=== PATIENT | female | born 1975 | race Caucasian/White ===

== ENCOUNTER 2024-06-11 10:20 | Day surgery (SDC) | payer OTHER ==
[~2024-06-11] VITALS: Ht 152.4 cm; Wt 54.7 kg
[2024-06-11] MEDS ORDERED: CELEXA40 M1 (10:59)
[2024-06-11] MEDS ORDERED: Nexium40 MG (10:59)
[2024-06-11] MEDS ORDERED: ALLEGRA ALLERG180 MG (11:00)
[2024-06-11] MEDS ORDERED: HYDROCODONE-AC1 EAC7 (11:02)
[2024-06-11] MEDS ORDERED: LAMO100 (11:04)
[2024-06-11] MEDS ORDERED: Lactated Ringer's 1,000 ML IV ONE ×2 (11:32→11:48)
[2024-06-11] MEDS ORDERED: propofoL 50 ML IV ONE (11:48)
[2024-06-11 12:59] VITALS: BP 123/97
== END 2024-06-11 13:02 | disposition home or self-care (01) ==
LOC: ORSCSDS 10:20
PROVIDERS: Internal Medicine Gastroenterology
PROC: 0DJ08ZZ Inspection of Upper Intestinal Tract, Via Natural or Artificial Opening Endoscopic (ICD-10-PCS; principal; 2024-06-11 11:30)
PROC: 0DJD8ZZ Inspection of Lower Intestinal Tract, Via Natural or Artificial Opening Endoscopic (ICD-10-PCS; principal; 2024-06-11 11:30)
DX: R19.4 Change in bowel habit (principal); R13.10 Dysphagia, unspecified; K21.9 Gastro-esophageal reflux disease without esophagitis; Z79.899 Other long term (current) drug therapy
CPT/HCPCS: J2704; J7120

== ENCOUNTER 2025-01-05 08:13 | Day surgery (SDC) | payer OTHER ==
[~2025-01-05] VITALS: Ht 152.4 cm; Wt 51.7 kg
[~2025-01-05 08:13] MED LIST: ALLEGRA ALLERG180 MG; CELEXA40 M1; HYDROCODONE-AC1 EAC7; LAMO100; Lactated Ringer's 1,000 ML IV ONE; Nexium40 MG; propofoL 50 ML IV ONE
[2025-01-05] MEDS ORDERED: RIZATRIPTAN5 M1 (08:47)
[2025-01-05] MEDS ORDERED: FAMO20 (08:47)
[2025-01-05] MEDS ORDERED: Lactated Ringer's 1,000 ML IV ONE (08:54)
[2025-01-05 10:14] VITALS: BP 103/67
--- NOTE | 2025-01-05 10:22 | NUR ---
01/05/25 1022 SMOOTH GUTHRIE DURING PROCEDURE PT BEGAN TO DESATURATE, AFTER BEING STABLE AT 96-99% ON 3L VIA NC. O2 INCREASED TO 8L VIA NC. PT CONTINUED TO DESATURATE AND JAW THRUST PERFORMED CONTINUOUSLY TO MAINTAIN SATURATIONS. PT RETURNED TO NORMAL SATURATIONS AFTER SEVERAL MINUTES AND PROCEDURE HAD ENDED.
== END 2025-01-05 10:13 | disposition home or self-care (01) ==
LOC: ORSCSDS 08:13
PROVIDERS: Specialist
PROC: 0DB58ZX Excision of Esophagus, Via Natural or Artificial Opening Endoscopic, Diagnostic (ICD-10-PCS; principal; 2025-01-05 09:30)
PROC: 0DB68ZX Excision of Stomach, Via Natural or Artificial Opening Endoscopic, Diagnostic (ICD-10-PCS; principal; 2025-01-05 09:30)
DX: R13.10 Dysphagia, unspecified (principal); K21.9 Gastro-esophageal reflux disease without esophagitis; Z79.899 Other long term (current) drug therapy
CPT/HCPCS: 88305; 88341; 88342; J2704; J7120

== ENCOUNTER 2025-05-17 16:06 | Emergency (ER) | payer OTHER ==
[~2025-05-17] VITALS: Ht 165.1 cm; Wt 59.0 kg
[~2025-05-17 16:06] MED LIST changes: -CELEXA40 M1; +CELEXA40 M1 PO; +FAMO20; -HYDROCODONE-AC1 EAC7; +HYDROCODONE-AC1 EAC7 PO; -Lactated Ringer's 1,000 ML IV ONE; +OMEP20ER; +RIZATRIPTAN5 M1; -propofoL 50 ML IV ONE
[2025-05-17 17:17] LABS: BASOPHILS ABSOLUTE AUTO 0.03 K/mm3 (0.00-0.23); BASOPHILS PERCENT AUTO 1 % (0-2); EOSINOPHILS ABSOLUTE AUTO 0.05 K/mm3 (0.00-0.68); EOSINOPHILS PERCENT AUTO 1 % (0-6); Hematocrit 42.5 % (33.0-51.0); Hemoglobin 13.9 g/dL (11.5-16.0); IMMATURE GRAN ABSOLUTE AUTO 0.01 K/mm3 (0.00-0.10); IMMATURE GRAN PERCENT AUTO 0 % (0-1); LYMPHOCYTES ABSOLUTE AUTO 1.47 K/mm3 (0.84-5.20); LYMPHOCYTES PERCENT AUTO 23 % (21-46); MONOCYTES ABSOLUTE AUTO 0.40 K/mm3 (0.16-1.47); MONOCYTES PERCENT AUTO 6 % (4-13); Mean Corpuscular HGB Conc 32.7 g/dL (31.5-36.5); Mean Corpuscular Volume 92 fL (80-100); NEUTROPHILS ABSOLUTE AUTO 4.43 K/mm3 (1.96-9.15); NEUTROPHILS PERCENT AUTO 69 % (41-73); NRBC ABSOLUTE 0.00 K/mm3 (0.00-0.02); NRBC Auto 0.0 /100 WBC (0.0-0.2); Platelet Count 577 K/mm3 (150-400); RDW Coefficient Variation 12.6 % (11.7-14.2); RDW Standard Deviation 42.5 fL (35.1-46.3)
[2025-05-17 17:38] LABS: Alanine Aminotransfer (ALT/SGP 83.0 U/L (12-78); Albumin, Blood 3.2 g/dL (3.4-5.0); Albumin/Globulin Ratio 0.9 (0.8-1.8); Anion Gap 12.0 mmol/L (3-11); Aspartate Aminotrans (AST/SGOT 74.0 U/L (12-37); Bilirubin, Total 0.4 mg/dL (0.1-1.0); Blood Urea Nitrogen 9.0 mg/dL (8-24); CO2, Blood 25.0 mmol/L (21-32); Calcium, Blood 9.2 mg/dL (8.5-10.1); Chloride, Blood 103.0 mmol/L (98-108); Creatinine, Blood 0.64 mg/dL (0.40-1.00); Globulin, Blood 3.5 g/dL (2.2-4.0); Glucose, Blood 119.0 mg/dL (70-99); Potassium, Blood 4.0 mmol/L (3.5-5.5); Sodium, Blood 136.0 mmol/L (136-145); Total Protein, Blood 6.7 g/dL (6.4-8.2)
[2025-05-17 18:43] LABS: Prothrombin Time Results 10.9 Sec (9.7-11.5)
[2025-05-17] MEDS ORDERED: Ondansetron HCl 2 MG / ML 2ML Vial IV ONE (19:25)
[2025-05-17] MEDS ORDERED: HYDROmorphone HCl/Pf 1MG SYR IV ONE (19:25)
[2025-05-17 19:40] VITALS: BP 114/88
[2025-05-17] MEDS ORDERED: RX Prepack 2 Tabs Ondansetron ODT 4MG UD ONE (20:15)
[2025-05-17] MEDS ORDERED: ONDA4ODT MM (20:16)
== END 2025-05-17 20:41 | disposition home or self-care (01) ==
LOC: ER 16:06
PROVIDERS: Student in an Organized Health Care Education/Training Program
DX: C78.6 Secondary malignant neoplasm of retroperitoneum and peritoneum (principal); C80.1 Malignant (primary) neoplasm, unspecified; Z90.49 Acquired absence of other specified parts of digestive tract; Z88.8 Allergy status to other drugs, medicaments and biological substances; Z88.5 Allergy status to narcotic agent; Z79.899 Other long term (current) drug therapy
CPT/HCPCS: 71046; 80053; 83605; 83690; 83880; 84484; 85025; 85610; 85730; 93005; 93010; 96361; 96374; 96375; 99284-25; A9270; J1171; J2405; J7120

== ENCOUNTER 2025-05-20 21:23 | Inpatient (IN) | payer OTHER ==
[~2025-05-20] VITALS: Ht 152.4 cm; Wt 49.9 kg
[~2025-05-20 21:23] MED LIST changes: +ONDA4ODT MM
[2025-05-20] MEDS ORDERED: Metoclopramide HCl 5MG / ML 2ML Vial IV ONE (22:25)
[2025-05-20] MEDS ORDERED: NS 1,000 ML IV SCH (22:25)
[2025-05-20] MEDS ORDERED: HYDROmorphone HCl/Pf 1MG SYR IV PRN (22:25)
[2025-05-20 22:29] LABS: BASOPHILS ABSOLUTE AUTO 0.04 K/mm3 (0.00-0.23); BASOPHILS PERCENT AUTO 1 % (0-2); EOSINOPHILS ABSOLUTE AUTO 0.02 K/mm3 (0.00-0.68); EOSINOPHILS PERCENT AUTO 0 % (0-6); Hematocrit 43.7 % (33.0-51.0); Hemoglobin 14.5 g/dL (11.5-16.0); IMMATURE GRAN ABSOLUTE AUTO 0.02 K/mm3 (0.00-0.10); IMMATURE GRAN PERCENT AUTO 0 % (0-1); LYMPHOCYTES ABSOLUTE AUTO 2.27 K/mm3 (0.84-5.20); LYMPHOCYTES PERCENT AUTO 32 % (21-46); MONOCYTES ABSOLUTE AUTO 0.93 K/mm3 (0.16-1.47); MONOCYTES PERCENT AUTO 13 % (4-13); Mean Corpuscular HGB Conc 33.2 g/dL (31.5-36.5); Mean Corpuscular Volume 90 fL (80-100); NEUTROPHILS ABSOLUTE AUTO 3.79 K/mm3 (1.96-9.15); NEUTROPHILS PERCENT AUTO 54 % (41-73); NRBC ABSOLUTE 0.00 K/mm3 (0.00-0.02); NRBC Auto 0.0 /100 WBC (0.0-0.2); Platelet Count 531 K/mm3 (150-400); RDW Coefficient Variation 12.6 % (11.7-14.2); RDW Standard Deviation 41.1 fL (35.1-46.3)
[2025-05-20 22:41] LABS: Alanine Aminotransfer (ALT/SGP 33.0 U/L (12-78); Albumin, Blood 3.3 g/dL (3.4-5.0); Albumin/Globulin Ratio 0.9 (0.8-1.8); Anion Gap 14.0 mmol/L (3-11); Aspartate Aminotrans (AST/SGOT 24.0 U/L (12-37); Bilirubin, Total 0.3 mg/dL (0.1-1.0); Blood Urea Nitrogen 9.0 mg/dL (8-24); CO2, Blood 25.0 mmol/L (21-32); Calcium, Blood 9.4 mg/dL (8.5-10.1); Chloride, Blood 98.0 mmol/L (98-108); Creatinine, Blood 0.67 mg/dL (0.40-1.00); Globulin, Blood 3.7 g/dL (2.2-4.0); Glucose, Blood 139.0 mg/dL (70-99); Potassium, Blood 3.9 mmol/L (3.5-5.5); Sodium, Blood 133.0 mmol/L (136-145); Total Protein, Blood 7.0 g/dL (6.4-8.2)
[2025-05-20 22:53] LABS: Prothrombin Time Results 11.4 Sec (9.7-11.5)
[2025-05-21] VITALS (14 sets, daily range): BP systolic 101–143; BP diastolic 69–100
[2025-05-21] MEDS ORDERED: NS 1,000 ML IV SCH ×2 (01:00→07:15)
[2025-05-21] MEDS ORDERED: HYDROmorphone HCl/Pf 1MG SYR IV PRN ×3 (01:00→16:40)
[2025-05-21] MEDS ORDERED: Ondansetron HCl 2 MG / ML 2ML Vial IV PRN (01:00)
[2025-05-21] MEDS ORDERED: Lidocaine 2% Jelly Uro-Jet TOP ONE (01:05)
[2025-05-21] MEDS ORDERED: Prochlorperazine Edisylate 10 mg Vial IV PRN (01:30)
[2025-05-21] MEDS ORDERED: Benzocaine Oral Spray 0.5ML UD MT PRN (05:40)
[2025-05-21 05:55] LABS: BASOPHILS ABSOLUTE AUTO 0.01 K/mm3 (0.00-0.23); BASOPHILS PERCENT AUTO 0 % (0-2); EOSINOPHILS ABSOLUTE AUTO 0.01 K/mm3 (0.00-0.68); EOSINOPHILS PERCENT AUTO 0 % (0-6); Hematocrit 38.7 % (33.0-51.0); Hemoglobin 12.9 g/dL (11.5-16.0); IMMATURE GRAN ABSOLUTE AUTO 0.01 K/mm3 (0.00-0.10); IMMATURE GRAN PERCENT AUTO 0 % (0-1); LYMPHOCYTES ABSOLUTE AUTO 1.25 K/mm3 (0.84-5.20); LYMPHOCYTES PERCENT AUTO 29 % (21-46); MONOCYTES ABSOLUTE AUTO 0.53 K/mm3 (0.16-1.47); MONOCYTES PERCENT AUTO 12 % (4-13); Mean Corpuscular HGB Conc 33.3 g/dL (31.5-36.5); Mean Corpuscular Volume 91 fL (80-100); NEUTROPHILS ABSOLUTE AUTO 2.51 K/mm3 (1.96-9.15); NEUTROPHILS PERCENT AUTO 58 % (41-73); NRBC ABSOLUTE 0.00 K/mm3 (0.00-0.02); NRBC Auto 0.0 /100 WBC (0.0-0.2); Platelet Count 402 K/mm3 (150-400); RDW Coefficient Variation 12.6 % (11.7-14.2); RDW Standard Deviation 41.6 fL (35.1-46.3)
[2025-05-21 06:07] LABS: Prothrombin Time Results 11.1 Sec (9.7-11.5)
[2025-05-21 06:24] LABS: Alanine Aminotransfer (ALT/SGP 26.0 U/L (12-78); Albumin, Blood 2.3 g/dL (3.4-5.0); Albumin/Globulin Ratio 0.8 (0.8-1.8); Anion Gap 13.0 mmol/L (3-11); Aspartate Aminotrans (AST/SGOT 19.0 U/L (12-37); Bilirubin, Total 0.3 mg/dL (0.1-1.0); Blood Urea Nitrogen 7.0 mg/dL (8-24); CO2, Blood 20.0 mmol/L (21-32); Calcium, Blood 8.0 mg/dL (8.5-10.1); Chloride, Blood 105.0 mmol/L (98-108); Creatinine, Blood 0.48 mg/dL (0.40-1.00); Globulin, Blood 2.9 g/dL (2.2-4.0); Glucose, Blood 121.0 mg/dL (70-99); Magnesium, Blood 1.9 mg/dL (1.6-2.4); Potassium, Blood 4.3 mmol/L (3.5-5.5); Sodium, Blood 134.0 mmol/L (136-145); Total Protein, Blood 5.2 g/dL (6.4-8.2)
--- NOTE | 2025-05-21 06:48 | NUR ---
SHIFT SUMMARY PT ER ADMIT THIS SHIFT FOR SBO. PT ARRIVED TO UNIT WITH NG TUBE IN PLACE. PT CONNECTED TO LIS, MINIMAL OUTPUT AT THIS TIME. DISCHARGE LIGHT BROWN. ABD MODERATELY DISTENDED, BOWEL TONES HYPOACTIVE. ABD PAIN MANAGED PER EMAR. PT PENDING SURICAL CONSULT AT THIS TIME. VITALS STABLE. ADMISSION COMPLETE. BED IN LOWEST POSITON, CALL LIGHT WITHIN REACH.
[2025-05-21] MEDS ORDERED: Heparin Sodium,Porcine 5,000 UNIT/0.5 ML SDV SC SCH (09:00)
[2025-05-21] MEDS ORDERED: PROM25 PO (12:56)
--- NOTE | 2025-05-21 15:10 | NUR ---
[facility]
[2025-05-21] MEDS ORDERED: Bupivacaine 0.5% HCl 5 MG/ML 30MLVIAL ONE (15:32)
--- NOTE | 2025-05-21 15:34 | NUR ---
TRANSPORTED TO [facility]. AGREES WITH PLANNED SURGERY. Pre-Op teaching done. Pt verbalizes understanding. History, Chart, Medications and Allergies reviewed before start of procedure. FAMILY AT BEDSIDE.
[2025-05-21] MEDS ORDERED: FentaNYL Citrate 50 MCG/ML 2 ML Injection ONE (15:37)
[2025-05-21] MEDS ORDERED: Rocuronium Bromide 10 MG/ML 5ML Injection IV ONE (15:37)
[2025-05-21] MEDS ORDERED: CeFAZolin Sodium 2,000 MG in NS 100 ML IV SCH (15:50)
[2025-05-21] MEDS ORDERED: Phenylephrine HCl 100 MCG/ML-NS 10MLSYR (1MG/10ML) ONE (16:08)
[2025-05-21] MEDS ORDERED: HYDROmorphone HCl/Pf 1MG SYR ONE (16:29)
[2025-05-21] MEDS ORDERED: Metoclopramide HCl 5MG / ML 2ML Vial IV PRN (16:35)
[2025-05-21] MEDS ORDERED: Albuterol 2.5 MG/3 ML VIAL INH PRN (16:35)
[2025-05-21] MEDS ORDERED: FentaNYL Citrate 50 MCG/ML 2 ML Injection IV PRN (16:40)
[2025-05-21] MEDS ORDERED: Sugammadex Sodium 200 MG/2ML SDV (100 MG/ML) ONE (17:18)
[2025-05-21] MEDS ORDERED: HYDROcodone 5-APAP 325 TAB PO PRN (17:40)
--- NOTE | 2025-05-21 18:16 | NUR ---
POST OP RETURN TO SURGICAL UNIT VIA GOURNEY, SLID TO BED. DROWSY BUT ARROUSES EASILY. ANSWERS ?s APPROP. ABD DISTENDED w/ LAP SITES x 3 COVERED w/ STERI STRIPS; NO DRNG NOTED. R ABD w/ ILEOSTOMY. SMALL AMOUNT OF GAS PASSES THRU & SCANT SS LQ. REPORTS PAIN IS TOLERABLE. DENIES N/V. NGT TO LIS.
[2025-05-22 05:17] VITALS: BP 115/72
[2025-05-22 05:33] LABS: BASOPHILS ABSOLUTE AUTO 0.01 K/mm3 (0.00-0.23); BASOPHILS PERCENT AUTO 0 % (0-2); EOSINOPHILS ABSOLUTE AUTO 0.00 K/mm3 (0.00-0.68); EOSINOPHILS PERCENT AUTO 0 % (0-6); Hematocrit 32.9 % (33.0-51.0); Hemoglobin 10.9 g/dL (11.5-16.0); IMMATURE GRAN ABSOLUTE AUTO 0.02 K/mm3 (0.00-0.10); IMMATURE GRAN PERCENT AUTO 0 % (0-1); LYMPHOCYTES ABSOLUTE AUTO 1.48 K/mm3 (0.84-5.20); LYMPHOCYTES PERCENT AUTO 19 % (21-46); MONOCYTES ABSOLUTE AUTO 1.00 K/mm3 (0.16-1.47); MONOCYTES PERCENT AUTO 13 % (4-13); Mean Corpuscular HGB Conc 33.1 g/dL (31.5-36.5); Mean Corpuscular Volume 94 fL (80-100); NEUTROPHILS ABSOLUTE AUTO 5.35 K/mm3 (1.96-9.15); NEUTROPHILS PERCENT AUTO 68 % (41-73); NRBC ABSOLUTE 0.00 K/mm3 (0.00-0.02); NRBC Auto 0.0 /100 WBC (0.0-0.2); Platelet Count 358 K/mm3 (150-400); RDW Coefficient Variation 12.8 % (11.7-14.2); RDW Standard Deviation 43.9 fL (35.1-46.3)
[2025-05-22 05:54] LABS: Anion Gap 8.0 mmol/L (3-11); Blood Urea Nitrogen 7.0 mg/dL (8-24); CO2, Blood 27.0 mmol/L (21-32); Calcium, Blood 7.7 mg/dL (8.5-10.1); Chloride, Blood 107.0 mmol/L (98-108); Creatinine, Blood 0.56 mg/dL (0.40-1.00); Glucose, Blood 105.0 mg/dL (70-99); Potassium, Blood 4.3 mmol/L (3.5-5.5); Sodium, Blood 138.0 mmol/L (136-145)
--- NOTE | 2025-05-22 06:23 | NUR ---
NOC SUMMARY- PT PAIN IS MANAGED WELL. PT HAS BEEN ABLE TO REST COMFORTABLY. PT OSTOMY IS STOOLING BROWN LIQUID STOOL. PT IS VOIDING. NGT HAS HAD LITTLE OUTPUT. PT HAS ONLY HAD ICE CHIPS THIS SHIFT. PT IS VOIDING AND IV FLUIDS ARE RUNNING. PT DENIES NAUSEA. CALL LIGHT IN REACH.
[2025-05-22 07:45] VITALS: BP 127/79
--- NOTE | 2025-05-22 14:31 | NUR ---
DC'D NGT, PATIENT TOLERATED WELL. INSTRUCTED ON SIPS OF CLEAR LIQUIDS.
[2025-05-22 14:38] VITALS: BP 104/78
[2025-05-22] MEDS ORDERED: Heparin Sodium,Porcine 5,000 UNIT/0.5 ML SDV SC SCH (16:00)
--- NOTE | 2025-05-22 18:03 | NUR ---
PATIENT ALERTX4 FAMILY AT BEDSIDE. NG TUBE REMOVED TODAY, PT TOLERATING CLEAR LIQUIDS. COLOSTOMY PRODUCING A TOTAL OF 700 LIQUID GREEN/BROWN. PATIENT DOESNT FEEL URGE TO PEE AND HAD TO BE PROMPTED VOIDED TOTAL 600 SEMICLOUDED YELLOW URINE. DIFFICULTY MANAGING PAIN. NOTIFIED. PALLATIVE CARE CONSULT ORDERED FOR PAIN MANAGEMENT. ATTEMPTING ORAL PAIN PRN NOW THAT PATIENT IS TOLERATING CLEAR LIQUIDS. SHE IS A ONE PERSON STANDBY ASSIST TO BATHROOM. NEW IV ON LEFT FORARM. OLD ONE REMOVED TIP INTACT. N/S CONTINUES AT 100/HR.
[2025-05-22 19:29] VITALS: BP 110/80
[2025-05-23 04:44] VITALS: BP 120/79
[2025-05-23 04:49] LABS: BASOPHILS ABSOLUTE AUTO 0.04 K/mm3 (0.00-0.23); BASOPHILS PERCENT AUTO 1 % (0-2); EOSINOPHILS ABSOLUTE AUTO 0.16 K/mm3 (0.00-0.68); EOSINOPHILS PERCENT AUTO 2 % (0-6); Hematocrit 35.7 % (33.0-51.0); Hemoglobin 11.5 g/dL (11.5-16.0); IMMATURE GRAN ABSOLUTE AUTO 0.03 K/mm3 (0.00-0.10); IMMATURE GRAN PERCENT AUTO 0 % (0-1); LYMPHOCYTES ABSOLUTE AUTO 2.64 K/mm3 (0.84-5.20); LYMPHOCYTES PERCENT AUTO 31 % (21-46); MONOCYTES ABSOLUTE AUTO 0.85 K/mm3 (0.16-1.47); MONOCYTES PERCENT AUTO 10 % (4-13); Mean Corpuscular HGB Conc 32.2 g/dL (31.5-36.5); Mean Corpuscular Volume 94 fL (80-100); NEUTROPHILS ABSOLUTE AUTO 4.85 K/mm3 (1.96-9.15); NEUTROPHILS PERCENT AUTO 57 % (41-73); NRBC ABSOLUTE 0.00 K/mm3 (0.00-0.02); NRBC Auto 0.0 /100 WBC (0.0-0.2); Platelet Count 340 K/mm3 (150-400); RDW Coefficient Variation 12.7 % (11.7-14.2); RDW Standard Deviation 43.2 fL (35.1-46.3)
--- NOTE | 2025-05-23 05:01 | NUR ---
SHIFT SUMMARY; PATIENT SLEPT IN SHORT INTERVALS. FAMILY STAYING OVER, HELPING WITH CARE. ILEOSTOMY ACTIVE. NS 100ML/HR. UP TO BR FOR VOIDING, NO NAUSEA.
[2025-05-23 05:11] LABS: Anion Gap 10.0 mmol/L (3-11); Blood Urea Nitrogen 3.0 mg/dL (8-24); CO2, Blood 26.0 mmol/L (21-32); Calcium, Blood 7.8 mg/dL (8.5-10.1); Chloride, Blood 107.0 mmol/L (98-108); Creatinine, Blood 0.59 mg/dL (0.40-1.00); Glucose, Blood 92.0 mg/dL (70-99); Potassium, Blood 3.7 mmol/L (3.5-5.5); Sodium, Blood 139.0 mmol/L (136-145)
[2025-05-23 08:01] VITALS: BP 108/74
--- NOTE | 2025-05-23 12:30 | NUR ---
UPDATE MD PETERSON AT BEDSIDE THIS AFTERNOON. PATIENT TO STAY OVERNIGHT FOR FURTHER ILIOSTOMY EDUCATION AND TO ASSESS HOW PATIENT IS TOLERATING ADVANCED DIET. MD KHAN UPDATED.
[2025-05-23 15:26] VITALS: BP 111/84
--- NOTE | 2025-05-23 16:10 | NUR ---
SHIFT SUMMARY NO ACUTE CHANGES THIS SHIFT. POD 2 LAP ILEOSTOMY. VSS. PAIN TOLERABLE T/O DAY - DENIES NEED FOR MANAGEMENT PER EMAR AT THIS TIME. X3 LAP SITES C/D/I W/ NO DRAINAGE NOTED. DIET ADVANCED TO REGULAR. ILEOSTOMY RLQ W/ LARGE LOOSE BROWN OUTPUT, BURPING PRN. OSTOMY SITE WNL. PATIENT PARTICIPATING W/ OSTOMY MANAGEMENT AND EDUCATION - ASKING FREQUENT QUESTIONS PRN. VOIDING. INDEPENDENT IN ROOM. SHOWER TODAY. FAMILY AT BEDSIDE T/O DAY. CALL LIGHT IN REACH.
--- NOTE | 2025-05-23 16:45 | NUR ---
ASSUMED CARE OF PATIENT AT THIS TIME.
--- NOTE | 2025-05-23 16:54 | NUR ---
REPORT GIVEN TO SMOOTH VELASQUEZ TO ASSUME CARE AT THIS TIME
[2025-05-23 19:31] VITALS: BP 103/80
[2025-05-24 05:54] VITALS: BP 110/76
--- NOTE | 2025-05-24 06:19 | NUR ---
SHIFT SUMMARY NOC. PT POD 3 FOR LAP ILEOSTOMY. PT'S LAP SITES ARE C/D/I. OSTOMY STOMA BEEFY RED, AND PRODUCING LIQUID OUTPUT. PT MEDICATED FOR PAIN WITH REPORTED RELIEF OF SX. PT DENIES NAUSEA/VOMITING THIS SHIFT. FAMILY AT BEDSIDE T/O THE NIGHT. PT VOIDING URINE. MAKES NEEDS KNOWN, CALL LIGHT IN REACH.
[2025-05-24 06:27] LABS: BASOPHILS ABSOLUTE AUTO 0.03 K/mm3 (0.00-0.23); BASOPHILS PERCENT AUTO 0 % (0-2); EOSINOPHILS ABSOLUTE AUTO 0.28 K/mm3 (0.00-0.68); EOSINOPHILS PERCENT AUTO 3 % (0-6); Hematocrit 36.5 % (33.0-51.0); Hemoglobin 12.2 g/dL (11.5-16.0); IMMATURE GRAN ABSOLUTE AUTO 0.03 K/mm3 (0.00-0.10); IMMATURE GRAN PERCENT AUTO 0 % (0-1); LYMPHOCYTES ABSOLUTE AUTO 2.37 K/mm3 (0.84-5.20); LYMPHOCYTES PERCENT AUTO 27 % (21-46); MONOCYTES ABSOLUTE AUTO 0.89 K/mm3 (0.16-1.47); MONOCYTES PERCENT AUTO 10 % (4-13); Mean Corpuscular HGB Conc 33.4 g/dL (31.5-36.5); Mean Corpuscular Volume 91 fL (80-100); NEUTROPHILS ABSOLUTE AUTO 5.17 K/mm3 (1.96-9.15); NEUTROPHILS PERCENT AUTO 59 % (41-73); NRBC ABSOLUTE 0.00 K/mm3 (0.00-0.02); NRBC Auto 0.0 /100 WBC (0.0-0.2); Platelet Count 390 K/mm3 (150-400); RDW Coefficient Variation 12.3 % (11.7-14.2); RDW Standard Deviation 41.2 fL (35.1-46.3)
[2025-05-24 06:47] LABS: Anion Gap 9.0 mmol/L (3-11); Blood Urea Nitrogen 5.0 mg/dL (8-24); CO2, Blood 25.0 mmol/L (21-32); Calcium, Blood 7.9 mg/dL (8.5-10.1); Chloride, Blood 108.0 mmol/L (98-108); Creatinine, Blood 0.55 mg/dL (0.40-1.00); Glucose, Blood 86.0 mg/dL (70-99); Potassium, Blood 3.4 mmol/L (3.5-5.5); Sodium, Blood 139.0 mmol/L (136-145)
[2025-05-24 07:59] VITALS: BP 102/71
[2025-05-24] MEDS ORDERED: Norco 5-325 Ta1 EACH PO (14:48)
--- NOTE | 2025-05-24 15:32 | NUR ---
DISCHARGE HAS BEEN EMPTYING HER OWN OSTOMY & OBSERVED A COMPLETE OSTOMY APPLIANCE CHANGE. DISCUSSED OSTOMY EDUCATION & SHE & SPOUSE FEEL COMFORTABLE GOING HOME. SUPPLIES SENT & NORCO Rx GIVEN. ESCORTED OUT VIA WC.
== END 2025-05-24 15:26 | disposition home health service (06) | DRG 330 ==
LOC: ER 21:23 → ERHOLD 05-21 00:45 → SURS 05-21 00:45
PROVIDERS: Emergency Medicine; Family Medicine; Student in an Organized Health Care Education/Training Program; Surgery; ADMIT Internal Medicine
PROC: 0D1B4Z4 Bypass Ileum to Cutaneous, Percutaneous Endoscopic Approach (ICD-10-PCS; 2025-05-21)
PROC: 0DBU4ZX Excision of Omentum, Percutaneous Endoscopic Approach, Diagnostic (ICD-10-PCS; 2025-05-21)
PROC: 0W9G3ZX Drainage of Peritoneal Cavity, Percutaneous Approach, Diagnostic (ICD-10-PCS; principal; 2025-05-21 16:00)
DX: K56.609 Unspecified intestinal obstruction, unspecified as to partial versus complete obstruction (principal); C56.9 Malignant neoplasm of unspecified ovary; E87.1 Hypo-osmolality and hyponatremia; E87.20 Acidosis, unspecified; C78.6 Secondary malignant neoplasm of retroperitoneum and peritoneum; F32.A Depression, unspecified; D75.839 Thrombocytosis, unspecified; D64.9 Anemia, unspecified; E86.0 Dehydration; Z88.5 Allergy status to narcotic agent; Z88.6 Allergy status to analgesic agent; Z79.899 Other long term (current) drug therapy; Z79.891 Long term (current) use of opiate analgesic; Z85.43 Personal history of malignant neoplasm of ovary; Z90.49 Acquired absence of other specified parts of digestive tract; Z98.891 History of uterine scar from previous surgery; Z90.710 Acquired absence of both cervix and uterus
CPT/HCPCS: 36415; 71045; 74177; 80048; 80053; 83605; 83690; 83735; 85025; 85610; 86850; 86900; 86901; 93005; 93010; 94760; 96374-59; 96375; 99285-25; A9270; J0690; J0780; J1171; J1644; J2371; J2405; J2704; J2765; J3010; J7030; J7120; Q9967

== ENCOUNTER 2025-06-07 13:22 | Emergency (ER) | payer OTHER ==
[~2025-06-07] VITALS: Ht 152.4 cm; Wt 41.3 kg
[~2025-06-07 13:22] MED LIST changes: +Norco 5-325 Ta1 EACH PO; +PROM25 PO
[2025-06-07] MEDS ORDERED: NS 1,000 ML IV SCH ×2 (13:35→15:55)
[2025-06-07] MEDS ORDERED: FentaNYL Citrate 50 MCG/ML 2 ML Injection IV ONE (14:05)
[2025-06-07 14:30] LABS: BASOPHILS ABSOLUTE AUTO 0.08 K/mm3 (0.00-0.23); BASOPHILS PERCENT AUTO 1 % (0-2); EOSINOPHILS ABSOLUTE AUTO 0.31 K/mm3 (0.00-0.68); EOSINOPHILS PERCENT AUTO 3 % (0-6); Hematocrit 42.7 % (33.0-51.0); Hemoglobin 14.4 g/dL (11.5-16.0); IMMATURE GRAN ABSOLUTE AUTO 0.03 K/mm3 (0.00-0.10); IMMATURE GRAN PERCENT AUTO 0 % (0-1); LYMPHOCYTES ABSOLUTE AUTO 2.82 K/mm3 (0.84-5.20); LYMPHOCYTES PERCENT AUTO 28 % (21-46); MONOCYTES ABSOLUTE AUTO 0.82 K/mm3 (0.16-1.47); MONOCYTES PERCENT AUTO 8 % (4-13); Mean Corpuscular HGB Conc 33.7 g/dL (31.5-36.5); Mean Corpuscular Volume 89 fL (80-100); NEUTROPHILS ABSOLUTE AUTO 5.86 K/mm3 (1.96-9.15); NEUTROPHILS PERCENT AUTO 59 % (41-73); NRBC ABSOLUTE 0.00 K/mm3 (0.00-0.02); NRBC Auto 0.0 /100 WBC (0.0-0.2); Platelet Count 761 K/mm3 (150-400); RDW Coefficient Variation 12.6 % (11.7-14.2); RDW Standard Deviation 41.2 fL (35.1-46.3)
[2025-06-07 14:42] LABS: Alanine Aminotransfer (ALT/SGP 117.0 U/L (12-78); Albumin, Blood 3.5 g/dL (3.4-5.0); Albumin/Globulin Ratio 0.9 (0.8-1.8); Anion Gap 12.0 mmol/L (3-11); Aspartate Aminotrans (AST/SGOT 47.0 U/L (12-37); Bilirubin, Total 0.6 mg/dL (0.1-1.0); Blood Urea Nitrogen 11.0 mg/dL (8-24); CO2, Blood 20.0 mmol/L (21-32); Calcium, Blood 8.8 mg/dL (8.5-10.1); Chloride, Blood 102.0 mmol/L (98-108); Creatinine, Blood 0.76 mg/dL (0.40-1.00); Globulin, Blood 3.8 g/dL (2.2-4.0); Glucose, Blood 108.0 mg/dL (70-99); Potassium, Blood 4.1 mmol/L (3.5-5.5); Sodium, Blood 130.0 mmol/L (136-145); Total Protein, Blood 7.3 g/dL (6.4-8.2)
[2025-06-07] MEDS ORDERED: Sucralfate 1000MG / 10ML UD BTL PO ONE (15:20)
[2025-06-07 17:30] VITALS: BP 94/70
== END 2025-06-07 17:53 | disposition home or self-care (01) ==
LOC: ER 13:22
PROVIDERS: Physician Assistant
DX: E86.0 Dehydration (principal); R53.1 Weakness; Z79.899 Other long term (current) drug therapy; Z88.6 Allergy status to analgesic agent; Z88.5 Allergy status to narcotic agent
CPT/HCPCS: 74177; 80053; 83605; 85025; 93005; 93010; 96361; 96374-59; 99285-25; A9270; J3010; J7030; Q9967

== ENCOUNTER 2025-06-18 06:13 | Day surgery (SDC) | payer OTHER ==
[2025-06-18] VITALS (12 sets, daily range): BP systolic 62–109; BP diastolic 48–84
[~2025-06-18] VITALS: Ht 152.4 cm; Wt 41.3 kg
[~2025-06-18 06:13] MED LIST changes: -CELEXA40 M1 PO; +CETI5; +Celexa20 MG PO; +HYDACE10B PO; +LAMO25; +LOPE2C PO; -Norco 5-325 Ta1 EACH PO; +RIZATRIPTAN10 MG SL; +TIZA4
[2025-06-18] MEDS ORDERED: CeFAZolin Sodium 2,000 MG in NS 100 ML IV SCH (06:20)
[2025-06-18] MEDS ORDERED: Bupivacaine 0.5% HCl 5 MG/ML 30MLVIAL ONE (06:58)
[2025-06-18] MEDS ORDERED: Lidocaine HCL 1% 10 ML MDV ONE (07:29)
[2025-06-18] MEDS ORDERED: Phenylephrine HCl 100 MCG/ML-NS 10MLSYR (1MG/10ML) ONE (07:42)
[2025-06-18] MEDS ORDERED: Glycopyrrolate 0.2 MG/ML 5ML VIAL ONE (07:54)
[2025-06-18] MEDS ORDERED: HYDROmorphone HCl/Pf 1MG SYR IV PRN ×2 (08:00)
[2025-06-18] MEDS ORDERED: FentaNYL Citrate 50 MCG/ML 2 ML Injection IV PRN ×2 (08:00)
[2025-06-18] MEDS ORDERED: Ondansetron HCl 2 MG / ML 2ML Vial IV PRN (08:05)
[2025-06-18] MEDS ORDERED: HYDROcodone 5-APAP 325 TAB PO PRN (08:25)
--- NOTE | 2025-06-18 10:13 | NUR ---
TO STEP POST MEDIPORT PLACEMENT TO RIGHT CHEST. DENIES PAIN, NAUSEA, SOB. HYPOTENSIVE, BASELINE FOR PT DUE TO HEALTH STATUS. MEREDITH PO WELL. 1 NORCO GIVEN ORDERED. 4MG ZOFRAN GIVEN FOR MILD NAUSEA. VERBALIZED UNDERSTANDING OF DC INSTRUCTIONS, FOLLOW UP, MEDICATION.S DRESSING CDI. DC'D VIA WC TO PRIVATE CAR WITH HYDRAULIC CONTROLS TECHNICIAN.
== END 2025-06-18 10:00 | disposition home or self-care (01) ==
LOC: ORSCMMR 06:13 → ORD 07:30 → ORSCMMR 07:30
PROVIDERS: Surgery
PROC: 0JH63WZ Insertion of Totally Implantable Vascular Access Device into Chest Subcutaneous Tissue and Fascia, Percutaneous Approach (ICD-10-PCS; principal; 2025-06-18 07:30)
PROC: B543ZZA Ultrasonography of Right Jugular Veins, Guidance (ICD-10-PCS; principal; 2025-06-18 07:30)
PROC: 05HM33Z Insertion of Infusion Device into Right Internal Jugular Vein, Percutaneous Approach (ICD-10-PCS; principal; 2025-06-18 07:30)
DX: C56.2 Malignant neoplasm of left ovary (principal); E78.5 Hyperlipidemia, unspecified; K21.9 Gastro-esophageal reflux disease without esophagitis; F32.A Depression, unspecified; M79.7 Fibromyalgia; Z79.899 Other long term (current) drug therapy
CPT/HCPCS: 77001; A9270; C1788; J0690; J1642; J2003; J2371; J2405; J2704; J7120

== ENCOUNTER → 2025-07-24 | Outpatient (CLI) | payer OTHER ==
[2025-07-24 13:04] LABS: BASOPHILS ABSOLUTE AUTO 0.04 K/mm3 (0.00-0.23); BASOPHILS PERCENT AUTO 1 % (0-2); EOSINOPHILS ABSOLUTE AUTO 0.19 K/mm3 (0.00-0.68); EOSINOPHILS PERCENT AUTO 2 % (0-6); Hematocrit 32.6 % (33.0-51.0); Hemoglobin 10.6 g/dL (11.5-16.0); IMMATURE GRAN ABSOLUTE AUTO 0.03 K/mm3 (0.00-0.10); IMMATURE GRAN PERCENT AUTO 0 % (0-1); LYMPHOCYTES ABSOLUTE AUTO 1.49 K/mm3 (0.84-5.20); LYMPHOCYTES PERCENT AUTO 18 % (21-46); MONOCYTES ABSOLUTE AUTO 0.63 K/mm3 (0.16-1.47); MONOCYTES PERCENT AUTO 7 % (4-13); Mean Corpuscular HGB Conc 32.5 g/dL (31.5-36.5); Mean Corpuscular Volume 91 fL (80-100); NEUTROPHILS ABSOLUTE AUTO 6.09 K/mm3 (1.96-9.15); NEUTROPHILS PERCENT AUTO 72 % (41-73); NRBC ABSOLUTE 0.00 K/mm3 (0.00-0.02); NRBC Auto 0.0 /100 WBC (0.0-0.2); Platelet Count 494 K/mm3 (150-400); RDW Coefficient Variation 14.2 % (11.7-14.2); RDW Standard Deviation 46.5 fL (35.1-46.3)
[2025-07-24 13:18] LABS: Alanine Aminotransfer (ALT/SGP 462.0 U/L (12-78); Albumin, Blood 3.0 g/dL (3.4-5.0); Albumin/Globulin Ratio 0.9 (0.8-1.8); Anion Gap 16.0 mmol/L (3-11); Aspartate Aminotrans (AST/SGOT 182.0 U/L (12-37); Bilirubin, Total 0.5 mg/dL (0.1-1.0); Blood Urea Nitrogen 7.0 mg/dL (8-24); CO2, Blood 22.0 mmol/L (21-32); Calcium, Blood 8.9 mg/dL (8.5-10.1); Chloride, Blood 100.0 mmol/L (98-108); Creatinine, Blood 0.52 mg/dL (0.40-1.00); Globulin, Blood 3.5 g/dL (2.2-4.0); Glucose, Blood 96.0 mg/dL (70-99); Potassium, Blood 3.9 mmol/L (3.5-5.5); Sodium, Blood 134.0 mmol/L (136-145); Total Protein, Blood 6.5 g/dL (6.4-8.2)
== END ==
LOC: LAB 12:59 → LAB SHORT 12:59
PROVIDERS: Student in an Organized Health Care Education/Training Program
DX: C56.9 Malignant neoplasm of unspecified ovary (principal)
CPT/HCPCS: 80053; 85025

== ENCOUNTER → 2025-08-12 | Outpatient (CLI) | payer OTHER ==
[~2025-08-12] MED LIST changes: +OXAYDO5 M1 PO; +PROC25S PR
[2025-08-12 16:12] LABS: Source, Urine Clean Catch
[2025-08-12 17:20] LABS: Bilirubin, Urine Neg (Neg); Color, Urine Yellow (P-Yellow); Glucose Qualitative, Urine Neg (Neg); Ketones, Urine Neg (Neg); Leukocyte Esterase, Urine Neg (Neg); Protein, Urine 2+ (Neg); Specific Gravity, Urine 1.025 (1.003-1.022); Urobilinogen, Urine NORM (Normal)
[2025-08-12 17:38] LABS: Red Blood Cells, Urine 0-2 /hpf (0-2)
== END | disposition home or self-care (01) ==
LOC: LAB 16:10 → LAB SHORT 16:10
PROVIDERS: Physician Assistant
DX: R30.0 Dysuria (principal)
CPT/HCPCS: 81001; 87086

== ENCOUNTER 2025-08-15 01:01 | Day surgery (SDC) | payer OTHER ==
[~2025-08-15 01:01] MED LIST changes: -OXAYDO5 M1 PO; -PROC25S PR
[2025-08-15] MEDS ORDERED: NS 1,000 ML IV SCH (07:20)
[2025-08-15 09:18] VITALS: BP 93/72
--- NOTE | 2025-08-15 09:57 | NUR ---
PT REPORTS NO SYMPTOMS ASSOCIATED WITH LOW BP
[2025-08-15] MEDS ORDERED: ONDA4ODT MM (11:03)
[2025-08-16] MEDS ORDERED: PROC25S PR (19:58)
[2025-08-16] MEDS ORDERED: OXAYDO5 M1 PO (19:58)
== END 2025-08-15 10:28 | disposition home or self-care (01) ==
LOC: ATC 01:01
DX: C56.2 Malignant neoplasm of left ovary (principal); Z88.5 Allergy status to narcotic agent; Z88.8 Allergy status to other drugs, medicaments and biological substances
CPT/HCPCS: 96360; J7030

== ENCOUNTER 2025-08-16 15:56 | Emergency (ER) | payer OTHER ==
[~2025-08-16] VITALS: Ht 152.4 cm; Wt 40.8 kg
[2025-08-16 16:43] LABS: BASOPHILS ABSOLUTE AUTO 0.07 K/mm3 (0.00-0.23); BASOPHILS PERCENT AUTO 1 % (0-2); EOSINOPHILS ABSOLUTE AUTO 0.32 K/mm3 (0.00-0.68); EOSINOPHILS PERCENT AUTO 5 % (0-6); Hematocrit 35.7 % (33.0-51.0); Hemoglobin 11.8 g/dL (11.5-16.0); IMMATURE GRAN ABSOLUTE AUTO 0.02 K/mm3 (0.00-0.10); IMMATURE GRAN PERCENT AUTO 0 % (0-1); LYMPHOCYTES ABSOLUTE AUTO 1.29 K/mm3 (0.84-5.20); LYMPHOCYTES PERCENT AUTO 18 % (21-46); MONOCYTES ABSOLUTE AUTO 0.60 K/mm3 (0.16-1.47); MONOCYTES PERCENT AUTO 8 % (4-13); Mean Corpuscular HGB Conc 33.1 g/dL (31.5-36.5); Mean Corpuscular Volume 91 fL (80-100); NEUTROPHILS ABSOLUTE AUTO 4.86 K/mm3 (1.96-9.15); NEUTROPHILS PERCENT AUTO 68 % (41-73); NRBC ABSOLUTE 0.00 K/mm3 (0.00-0.02); NRBC Auto 0.0 /100 WBC (0.0-0.2); Platelet Count 440 K/mm3 (150-400); RDW Coefficient Variation 13.6 % (11.7-14.2); RDW Standard Deviation 46.1 fL (35.1-46.3)
[2025-08-16 17:14] LABS: Alanine Aminotransfer (ALT/SGP 303.0 U/L (12-78); Albumin, Blood 2.8 g/dL (3.4-5.0); Albumin/Globulin Ratio 0.8 (0.8-1.8); Anion Gap 9.0 mmol/L (3-11); Aspartate Aminotrans (AST/SGOT 378.0 U/L (12-37); Bilirubin, Total 0.5 mg/dL (0.1-1.0); Blood Urea Nitrogen 8.0 mg/dL (8-24); CO2, Blood 21.0 mmol/L (21-32); Calcium, Blood 8.5 mg/dL (8.5-10.1); Chloride, Blood 110.0 mmol/L (98-108); Creatinine, Blood 0.49 mg/dL (0.40-1.00); Globulin, Blood 3.4 g/dL (2.2-4.0); Glucose, Blood 108.0 mg/dL (70-99); Potassium, Blood 3.2 mmol/L (3.5-5.5); Sodium, Blood 137.0 mmol/L (136-145); Total Protein, Blood 6.2 g/dL (6.4-8.2)
[2025-08-16] MEDS ORDERED: Ondansetron HCl 2 MG / ML 2ML Vial IV ONE (17:15)
[2025-08-16] MEDS ORDERED: NS 1,000 ML IV SCH (17:15)
[2025-08-16] MEDS ORDERED: HYDROmorphone HCl/Pf 1MG SYR IV PRN (17:15)
[2025-08-16] MEDS ORDERED: PROC25S PR (19:58)
[2025-08-16] MEDS ORDERED: OXAYDO5 M1 PO (19:58)
[2025-08-16] MEDS ORDERED: RX Prepack 6 Tabs Oxycodone 5mg UD ONE (20:00)
[2025-08-16] MEDS ORDERED: Potassium Chloride 10 Meq Tablet SA PO ONE (20:00)
[2025-08-16 20:16] VITALS: BP 98/70
== END 2025-08-16 20:13 | disposition home or self-care (01) ==
LOC: ER 15:56
PROVIDERS: Physician Assistant
DX: C56.3 Malignant neoplasm of bilateral ovaries (principal); R18.0 Malignant ascites; K85.90 Acute pancreatitis without necrosis or infection, unspecified; E87.6 Hypokalemia; R74.01 Elevation of levels of liver transaminase levels; D75.839 Thrombocytosis, unspecified; Z88.5 Allergy status to narcotic agent; Z88.6 Allergy status to analgesic agent; Z79.899 Other long term (current) drug therapy
CPT/HCPCS: 74177; 80053; 83605; 83690; 85025; 93005; 93010; 96361; 96374-59; 96375; 96376; 99284-25; A9270; J1171; J1642; J2405; J7030; Q9967

== ENCOUNTER 2025-08-28 01:13 | Emergency (ER) | payer OTHER ==
[~2025-08-28] VITALS: Ht 152.4 cm; Wt 41.0 kg
[~2025-08-28 01:13] MED LIST changes: +OXAYDO5 M1 PO; +PROC25S PR
[2025-08-28] MEDS ORDERED: Ondansetron HCl 2 MG / ML 2ML Vial IV PRN (01:45)
[2025-08-28 02:48] LABS: BASOPHILS ABSOLUTE AUTO 0.03 K/mm3 (0.00-0.23); BASOPHILS PERCENT AUTO 1 % (0-2); EOSINOPHILS ABSOLUTE AUTO 0.10 K/mm3 (0.00-0.68); EOSINOPHILS PERCENT AUTO 2 % (0-6); Hematocrit 33.2 % (33.0-51.0); Hemoglobin 10.9 g/dL (11.5-16.0); IMMATURE GRAN ABSOLUTE AUTO 0.02 K/mm3 (0.00-0.10); IMMATURE GRAN PERCENT AUTO 0 % (0-1); LYMPHOCYTES ABSOLUTE AUTO 0.95 K/mm3 (0.84-5.20); LYMPHOCYTES PERCENT AUTO 17 % (21-46); MONOCYTES ABSOLUTE AUTO 0.29 K/mm3 (0.16-1.47); MONOCYTES PERCENT AUTO 5 % (4-13); Mean Corpuscular HGB Conc 32.8 g/dL (31.5-36.5); Mean Corpuscular Volume 92 fL (80-100); NEUTROPHILS ABSOLUTE AUTO 4.25 K/mm3 (1.96-9.15); NEUTROPHILS PERCENT AUTO 75 % (41-73); NRBC ABSOLUTE 0.00 K/mm3 (0.00-0.02); NRBC Auto 0.0 /100 WBC (0.0-0.2); Platelet Count 358 K/mm3 (150-400); RDW Coefficient Variation 13.3 % (11.7-14.2); RDW Standard Deviation 45.0 fL (35.1-46.3)
[2025-08-28] MEDS ORDERED: HYDROmorphone HCl/Pf 1MG SYR IV ONE ×2 (03:05→05:35)
[2025-08-28 03:11] LABS: Alanine Aminotransfer (ALT/SGP 452.0 U/L (12-78); Albumin, Blood 2.3 g/dL (3.4-5.0); Albumin/Globulin Ratio 0.7 (0.8-1.8); Anion Gap 10.0 mmol/L (3-11); Aspartate Aminotrans (AST/SGOT 473.0 U/L (12-37); Bilirubin, Total 0.9 mg/dL (0.1-1.0); Blood Urea Nitrogen 8.0 mg/dL (8-24); CO2, Blood 23.0 mmol/L (21-32); Calcium, Blood 8.2 mg/dL (8.5-10.1); Chloride, Blood 108.0 mmol/L (98-108); Creatinine, Blood 0.56 mg/dL (0.40-1.00); Globulin, Blood 3.3 g/dL (2.2-4.0); Glucose, Blood 104.0 mg/dL (70-99); Potassium, Blood 3.5 mmol/L (3.5-5.5); Sodium, Blood 137.0 mmol/L (136-145); Total Protein, Blood 5.6 g/dL (6.4-8.2)
[2025-08-28 06:14] LABS: Source, Urine Clean Catch
[2025-08-28 06:19] LABS: Bilirubin, Urine Neg (Neg); Color, Urine Yellow (P-Yellow); Glucose Qualitative, Urine Neg (Neg); Ketones, Urine Neg (Neg); Leukocyte Esterase, Urine Neg (Neg); Protein, Urine 2+ (Neg); Specific Gravity, Urine 1.010 (1.003-1.022); Urobilinogen, Urine NORM (Normal)
[2025-08-28 06:29] LABS: White Blood Cells, Urine 0-2 /hpf (0-5)
[2025-08-28 06:30] LABS: Red Blood Cells, Urine 50-100 /hpf (0-2)
[2025-08-28] MEDS ORDERED: RX Prepack 2 Tabs Ondansetron ODT 4MG UD ONE (06:45)
[2025-08-28] MEDS ORDERED: RX Prepack 6 Tabs Oxycodone 5mg UD ONE (06:45)
[2025-08-28] MEDS ORDERED: ONDA4 PO (06:47)
[2025-08-28] MEDS ORDERED: PHENA200 PO (06:47)
[2025-08-28 07:13] VITALS: BP 90/72
== END 2025-08-28 07:15 | disposition home or self-care (01) ==
LOC: ER 01:13
PROVIDERS: Student in an Organized Health Care Education/Training Program
DX: N20.2 Calculus of kidney with calculus of ureter (principal); R10.9 Unspecified abdominal pain; R18.8 Other ascites; Z85.43 Personal history of malignant neoplasm of ovary; Z79.899 Other long term (current) drug therapy; Z88.5 Allergy status to narcotic agent; Z88.6 Allergy status to analgesic agent
CPT/HCPCS: 74177; 80053; 81001; 83690; 85025; 93005; 93010; 96374-59; 96375; 96376; 99284-25; A9270; J1171; J1642; J2405; Q9967